=== PATIENT | male | born 1960 | race Asian ===

== ENCOUNTER 2023-10-31 15:45 | Emergency (ER) | payer MEDICAID ==
[~2023-10-31] VITALS: Ht 170.2 cm; Wt 82.6 kg
[2023-10-31 15:49] VITALS: BP 227/82; PULSE 69; RESP 20; TEMP 97.9; O2SAT 99
[2023-10-31 16:32] LABS: BASOPHILS % (AUTO) 0.1 % (0.0-2.0); EOSINOPHILS # (AUTO) 0.1 K/uL (0-0.4); EOSINOPHILS % (AUTO) 1.1 % (0.0-4.0); HEMATOCRIT 47.3 % (36-52); HEMOGLOBIN 15.7 g/dL (12.0-18.0); LYMPHOCYTES # (AUTO) 1.1 K/uL (2.0-11.5); MEAN CORPUSCULAR HEMOGLOBIN 31 pg (27-31); MEAN CORPUSCULAR HGB CONC 33 g/dL (33-37); MONOCYTES # (AUTO) 0.7 K/uL (0.8-1.0); MONOCYTES % (AUTO) 5.2 % (1.7-9.3); NEUTROPHILS # (AUTO) 10.5 K/uL (1.8-7.7); NEUTROPHILS % (AUTO) 84.6 % (42.2-75.2); PLATELET COUNT (AUTO) 145 K/uL (140-450); RED BLOOD CELL COUNT(AUTO) 5.14 MIL/uL (4.20-6.10); RED CELL DISTRIBUTION WIDTH 13.4 % (11.6-13.7); WHITE BLOOD COUNT (AUTO) 12.5 K/uL (4.8-10.8)
[2023-10-31 16:39] LABS: ANION GAP 12.5 (8-16); CALCIUM 8.9 mg/dL (8.5-10.1); CREATININE 1.1 mg/dL (0.6-1.3); POTASSIUM 4.5 mmol/L (3.5-5.1)
[2023-10-31] MEDS ORDERED: MORPHINE SULFATE 4 MG/ML SYR IVP ONE (16:40)
[2023-10-31] MEDS ORDERED: ONDANSETRON 4 MG/2 ML VIAL IVP ONE (16:40)
[2023-10-31] MEDS ORDERED: ACET-503 PO (17:54)
[2023-10-31] MEDS ORDERED: IBUP-2213 PO (17:54)
[2023-10-31] MEDS ORDERED: ONDA8TAB87 PO (17:54)
[2023-10-31 17:56] VITALS: BP 207/89; PULSE 75; RESP 18; TEMP 98.2; O2SAT 99
[2023-10-31] MEDS ORDERED: LISI40TA12 PO (18:00)
== END 2023-10-31 17:58 | disposition home or self-care (01) ==
LOC: MED 15:45
DX: S09.90XA Unspecified injury of head, initial encounter (principal); R55 Syncope and collapse; M25.512 Pain in left shoulder; R11.2 Nausea with vomiting, unspecified; E11.9 Type 2 diabetes mellitus without complications; I10 Essential (primary) hypertension; W21.05XA Struck by basketball, initial encounter; Y93.67 Activity, basketball; Y92.310 Basketball court as the place of occurrence of the external cause; Y99.8 Other external cause status
CPT/HCPCS: 36415; 70450; 73030; 80048; 82948; 85025; 93005; 96374; 96375; 99285; J2270; J2405

== ENCOUNTER 2024-06-30 06:38 | Day surgery (SDC) | payer OTHER ==
[~2024-06-30] VITALS: Ht 154.9 cm; Wt 77.1 kg
[~2024-06-30 06:38] MED LIST: ACET-503 PO; IBUP-2213 PO; LISI40TA12 PO; ONDA8TAB87 PO
[2024-06-30] MEDS ORDERED: diphenhydrAMINE 50 MG/ML VIAL ONE (07:30)
[2024-06-30] MEDS ORDERED: LIDOCAINE 2% 100 MG/5 ML UJET TP ONE (07:31)
[2024-06-30] MEDS ORDERED: MIDAZOLAM 5 MG/5 ML VIAL ONE (07:31)
[2024-06-30] MEDS ORDERED: fentaNYL citrate 0.05 MG/ML VIAL ONE (07:31)
[2024-06-30] MEDS: fentaNYL citrate 0.05 MG/ML VIAL IVP ONE (07:46)
[2024-06-30] MEDS: MIDAZOLAM 2 MG/2 ML VIAL IVP ONE (07:48)
== END 2024-06-30 09:20 | disposition home or self-care (01) ==
LOC: MDS 06:38 → MMU 06:43 → MDS 09:20
PROVIDERS: ATTEND Internal Medicine Gastroenterology
DX: Z12.11 Encounter for screening for malignant neoplasm of colon (principal); K63.5 Polyp of colon; I10 Essential (primary) hypertension; E11.9 Type 2 diabetes mellitus without complications; E66.9 Obesity, unspecified; Z79.899 Other long term (current) drug therapy; Z68.32 Body mass index [BMI] 32.0-32.9, adult
CPT/HCPCS: 45385; 82948; J2250; J3010; J1200